=== PATIENT | male | born 1970 | race Asian ===

== ENCOUNTER 2022-05-03 21:18 | Emergency (ER) | payer OTHER ==
[~2022-05-03] VITALS: Ht 167.6 cm; Wt 63.6 kg
[2022-05-04] MEDS ORDERED: LEVO500T31 PO (01:35)
[2022-05-04] MEDS ORDERED: ALBUAER3 IN (01:35)
[2022-05-04 02:17] VITALS: BP 115/87
== END 2022-05-04 02:18 | disposition home or self-care (01) ==
LOC: ER 21:18
DX: J18.9 Pneumonia, unspecified organism (principal); Z20.822 Contact with and (suspected) exposure to COVID-19
CPT/HCPCS: 36415; 71045; 87804

== ENCOUNTER 2022-12-27 03:09 | Emergency (ER) | payer MEDICAID, OTHER ==
[~2022-12-27] VITALS: Ht 165.1 cm; Wt 68.0 kg
[~2022-12-27 03:09] MED LIST: ALBUAER3 IN; LEVO500T31 PO
[2022-12-27] MEDS ORDERED: MORPHINE SULFATE 4 MG/ML SYR/VIAL IV ONE (03:30)
[2022-12-27] MEDS ORDERED: MORPHINE SULFATE 4 MG/ML SYR/VIAL ONE (03:30)
[2022-12-27] MEDS ORDERED: IOHEXOL 350 MG/ML 100ML IJ ONE (03:46)
[2022-12-27 04:30] VITALS: BP 129/74
== END 2022-12-27 05:59 | disposition home or self-care (01) ==
LOC: ER 03:09
DX: S81.832A Puncture wound without foreign body, left lower leg, initial encounter (principal); Z79.2 Long term (current) use of antibiotics; Z79.899 Other long term (current) drug therapy; W34.00XA Accidental discharge from unspecified firearms or gun, initial encounter; Y93.89 Activity, other specified; Y92.89 Other specified places as the place of occurrence of the external cause; Y99.8 Other external cause status
CPT/HCPCS: 73590; 73706; 96374; 99285; J2270; Q9967